=== PATIENT | female | born 1975 | race African-American/Black ===

== ENCOUNTER 2016-10-22 17:13 | Emergency (ER) | payer MEDICARE, MEDICAID ==
[~2016-10-22] VITALS: Ht 157.5 cm; Wt 75.6 kg
[~2016-10-22 17:13] MED LIST: AZAT50TA18; AZIT500T2 PO; CEPH-569; CEPHALEXIN; FLUOCINOLONE; HYDROXYCHLOROQUINE; METRONIDAZOLE; OMEPRAZOLE; PRED10TA; PREDNISONE; SULF1TAB47; TRAMADOL; TYLENOL #3; XANAX; [UNRECOGNIZED DRUG - OTHER]; [UNRECOGNIZED DRUG - OTHER]
[2016-10-22] MEDS ORDERED: ASPIRIN 81MG TABLET PO ONE (18:00)
[2016-10-22] MEDS ORDERED: MORPHINE SULFATE 10 MG/ML CPJ IM ONE (18:00)
[2016-10-22 18:05] VITALS: BP 121/88
[2016-10-22 18:26] LABS: BASOPHILS % 0.5 % (0.0-2.0); EOSINOPHILS % 0.2 % (0.0-5.0); HEMATOCRIT. 37.8 % (36.0-48.0); HEMOGLOBIN. 12.9 g/dL (12.0-16.0); MEAN CORPUSCULAR HEMOGLOBIN 32.4 pg (28.0-32.0); MEAN PLATELET VOLUME 7.3 fl (7.4-10.4); MONOCYTES % 5.1 % (2.0-8.0); NEUTROPHILS % 83.2 % (40.0-76.0); PLATELET 228 x1000/uL (130-400); RED BLOOD CELL COUNT 3.97 mill/uL (4.2-5.4)
[2016-10-22 18:33] LABS: HCG SCREEN NEGATIVE
[2016-10-22 18:42] LABS: CARBON DIOXIDE 21 mEq/L (21-32); CHLORIDE 108 mEq/L (98-107); ETHANOL BLOOD < 10 mg/dL; TROPONIN I < 0.02 ng/mL (0.00-0.04)
[2016-10-22 18:53] LABS: CLARITY URINE CLOUDY (CLEAR); COLOR URINE YELLOW (YELLOW); GLUCOSE URINE NEGATIVE (NEGATIVE); KETONES URINE NEGATIVE (NEGATIVE); LEUKOCYTE ESTERASE URINE NEGATIVE (NEGATIVE); NITRITE URINE NEGATIVE (NEGATIVE); OCCULT BLOOD URINE TRACE (NEGATIVE); PROTEIN URINE NEGATIVE (NEGATIVE); UROBILINOGEN URINE 0.2 E.U./dL (0.2-1.0)
[2016-10-22 19:07] LABS: *BARBITURATES SCREEN URINE NEGATIVE (NEGATIVE); *BENZODIAZEPINES SCREEN URINE NEGATIVE (NEGATIVE); *COCAINE SCREEN URINE NEGATIVE (NEGATIVE); METHADONE URINE SCREEN NEGATIVE (NEGATIVE); PHENCYCLIDINE URINE SCREEN NEGATIVE (NEGATIVE)
[2016-10-22 19:10] LABS: *AMPHETAMINES SCREEN URINE PRESUMTIVE POSITIVE (NEGATIVE); CANNABINOID URINE SCREEN PRESUMTIVE POSITIVE (NEGATIVE); OPIATES URINE SCREEN PRESUMTIVE POSITIVE (NEGATIVE)
== END 2016-10-22 20:24 | disposition home or self-care (01) ==
LOC: ER 18:54
DX: R07.89 Other chest pain (principal); F11.10 Opioid abuse, uncomplicated; F15.10 Other stimulant abuse, uncomplicated; M32.9 Systemic lupus erythematosus, unspecified; F17.210 Nicotine dependence, cigarettes, uncomplicated; F12.10 Cannabis abuse, uncomplicated; Z88.3 Allergy status to other anti-infective agents; Z98.890 Other specified postprocedural states
CPT/HCPCS: 36415; 71010; 80053; 80305; 81001; 83690; 84484; 84703; 85025; 93005; 96372; 99285; G0482; J2270

== ENCOUNTER 2017-10-18 14:01 | Emergency (ER) | payer MEDICARE, MEDICAID ==
[~2017-10-18] VITALS: Ht 167.6 cm; Wt 70.0 kg
[2017-10-18] MEDS ORDERED: SODIUM CHLORIDE 0.9% 1,000 ML IV ONE (14:52)
[2017-10-18] MEDS ORDERED: ONDANSETRON HCL 4MG/2ML VIAL IV STA (14:52)
[2017-10-18] MEDS ORDERED: MORPHINE SULFATE 4 MG/ML CPJ (NOT FOR IM USE) IV STA (14:52)
[2017-10-18] MEDS ORDERED: PREDNISONE 20MG TABLET PO ONE (15:00)
[2017-10-18] MEDS ORDERED: IPRATROPIUM/ALBUTEROL 0.5-3(2.5)MG/3ML NEB HHN ONE (15:00)
[2017-10-18 16:00] LABS: BASOPHILS % 0.5 % (0.0-2.0); EOSINOPHILS % 0.2 % (0.0-5.0); HEMATOCRIT. 39.8 % (36.0-48.0); HEMOGLOBIN. 13.7 g/dL (12.0-16.0); LYMPHOCYTES % 18.1 % (20.0-50.0); MEAN CORPUSCULAR HEMOGLOBIN 32.8 pg (28.0-32.0); MEAN CORPUSCULAR VOLUME 95.5 fL (81.0-99.0); MEAN PLATELET VOLUME 7.5 fl (7.4-10.4); MONOCYTES % 8.9 % (2.0-8.0); NEUTROPHILS % 72.3 % (40.0-76.0); PLATELET 239 x1000/uL (130-400); RED BLOOD CELL COUNT 4.17 mill/uL (4.2-5.4); RED CELL DISTRIBUTION WIDTH 13.1 % (11.6-14.6)
[2017-10-18 16:00] LABS: CLARITY URINE CLEAR (CLEAR); COLOR URINE YELLOW (YELLOW); KETONES URINE NEGATIVE (NEGATIVE); LEUKOCYTE ESTERASE URINE NEGATIVE (NEGATIVE); NITRITE URINE NEGATIVE (NEGATIVE); OCCULT BLOOD URINE NEGATIVE (NEGATIVE); PROTEIN URINE NEGATIVE (NEGATIVE); SPECIFIC GRAVITY URINE 1.012 (1.005-1.030); UROBILINOGEN URINE 0.2 E.U./dL (0.2-1.0)
[2017-10-18 16:04] LABS: CHLORIDE 108 mEq/L (98-107)
[2017-10-18 16:15] VITALS: BP 122/82
== END 2017-10-18 16:48 | disposition home or self-care (01) ==
LOC: ER 14:01 → CANBEDREQ 16:20 → ER 16:48
DX: M32.9 Systemic lupus erythematosus, unspecified (principal); R53.1 Weakness; R19.7 Diarrhea, unspecified; R11.2 Nausea with vomiting, unspecified; F12.10 Cannabis abuse, uncomplicated; Z79.899 Other long term (current) drug therapy; Z88.3 Allergy status to other anti-infective agents; Z88.1 Allergy status to other antibiotic agents
CPT/HCPCS: 36415; 71045; 80053; 81003; 81025; 83690; 85025; 93005; 94640; 96361; 96374; 96375; 99285; J2270; J2405; J7030; J7512; J7620

== ENCOUNTER 2017-11-12 23:46 | Emergency (ER) | payer MEDICARE, MEDICAID ==
[~2017-11-12] VITALS: Ht 165.1 cm; Wt 73.0 kg
[2017-11-13] MEDS ORDERED: ONDANSETRON 4MG ODT PO ONE
[2017-11-13] MEDS ORDERED: KETOROLAC 30MG/ML VIAL IM ONE
[2017-11-13] MEDS ORDERED: MORPHINE SULFATE 10 MG/ML CPJ IM ONE
[2017-11-13 00:34] LABS: BASOPHILS % 0.8 % (0.0-2.0); EOSINOPHILS % 0.1 % (0.0-5.0); HEMATOCRIT. 41.4 % (36.0-48.0); HEMOGLOBIN. 13.9 g/dL (12.0-16.0); LYMPHOCYTES % 11.9 % (20.0-50.0); MEAN CORPUSCULAR HEMOGLOBIN 31.9 pg (28.0-32.0); MEAN CORPUSCULAR VOLUME 94.6 fL (81.0-99.0); MEAN PLATELET VOLUME 7.6 fl (7.4-10.4); NEUTROPHILS % 81.2 % (40.0-76.0); PLATELET 287 x1000/uL (130-400); RED BLOOD CELL COUNT 4.37 mill/uL (4.2-5.4)
[2017-11-13 00:41] LABS: CHLORIDE 106 mEq/L (98-107)
[2017-11-13 00:45] LABS: ETHANOL BLOOD < 10 mg/dL
[2017-11-13 00:50] LABS: CREATINE KINASE 60 IU/L (26-192); HCG SCREEN NEGATIVE
[2017-11-13 02:30] VITALS: BP 120/76
[2017-11-13] MEDS ORDERED: PREDNISONE 20MG TABLET PO ONE (02:30)
== END 2017-11-13 02:51 | disposition home or self-care (01) ==
LOC: ER 11-13 00:17
DX: M79.1 Myalgia (principal); M32.9 Systemic lupus erythematosus, unspecified; F12.10 Cannabis abuse, uncomplicated; Z88.1 Allergy status to other antibiotic agents; Z79.899 Other long term (current) drug therapy; Z90.49 Acquired absence of other specified parts of digestive tract; Z98.890 Other specified postprocedural states
CPT/HCPCS: 36415; 80053; 82550; 83690; 83880; 84484; 84703; 85025; 85610; 85651; 85730; 93005; 96372; 99285; G0482; J1885; J2270; J7512; Q0162

== ENCOUNTER 2017-12-26 17:36 | Emergency (ER) | payer MEDICARE, MEDICAID ==
[~2017-12-26] VITALS: Ht 157.5 cm; Wt 70.0 kg
[2017-12-26 20:30] VITALS: BP 165/88
== END 2017-12-26 20:31 | disposition home or self-care (01) ==
LOC: ER 17:36
DX: M32.9 Systemic lupus erythematosus, unspecified (principal); M19.90 Unspecified osteoarthritis, unspecified site; F12.10 Cannabis abuse, uncomplicated; F17.200 Nicotine dependence, unspecified, uncomplicated; Z76.0 Encounter for issue of repeat prescription; Z90.89 Acquired absence of other organs; Z98.890 Other specified postprocedural states; Z79.899 Other long term (current) drug therapy; Z88.1 Allergy status to other antibiotic agents
CPT/HCPCS: 81025; 99283

== ENCOUNTER 2018-04-12 17:33 | Emergency (ER) | payer MEDICARE, MEDICAID ==
[2018-04-12 19:03] VITALS: BP 119/73
== END 2018-04-12 20:00 | disposition left against medical advice (07) ==
LOC: ER 17:33
DX: R10.9 Unspecified abdominal pain (principal); Z53.21 Procedure and treatment not carried out due to patient leaving prior to being seen by health care provider

== ENCOUNTER 2018-04-13 08:36 | Emergency (ER) | payer MEDICARE, MEDICAID ==
[~2018-04-13] VITALS: Ht 157.5 cm; Wt 73.0 kg
[~2018-04-13 08:36] MED LIST changes: -AZIT500T2 PO; -CEPH-569
[2018-04-13] MEDS ORDERED: PREDNISONE 20MG TABLET PO ONE (10:00)
[2018-04-13] MEDS ORDERED: HYDROXYCHLOROQUINE SULFATE 200MG TABLET PO ONE (10:00)
[2018-04-13] MEDS ORDERED: AZATHIOPRINE 50MG TABLET PO ONE (10:00)
[2018-04-13] MEDS ORDERED: ACETAMINOPHEN WITH CODEINE 300/30MG TABLET PO ONE (10:00)
[2018-04-13 10:11] VITALS: BP 127/81
== END 2018-04-13 11:19 | disposition home or self-care (01) ==
LOC: ER 11:07
DX: Z76.0 Encounter for issue of repeat prescription (principal); M32.9 Systemic lupus erythematosus, unspecified; F41.9 Anxiety disorder, unspecified; F17.200 Nicotine dependence, unspecified, uncomplicated; Z88.1 Allergy status to other antibiotic agents; Z98.890 Other specified postprocedural states
CPT/HCPCS: 99284; J7500; J7512

== ENCOUNTER 2018-05-16 06:57 | Emergency (ER) | payer MEDICARE, MEDICAID ==
[2018-05-16] MEDS ORDERED: KETOROLAC 60MG/2ML VIAL IM ONE (07:45)
[2018-05-16 09:28] VITALS: BP 130/78
== END 2018-05-16 09:28 | disposition home or self-care (01) ==
LOC: ER 06:57
DX: S09.8XXA Other specified injuries of head, initial encounter (principal); R51 Headache; F41.9 Anxiety disorder, unspecified; S16.1XXA Strain of muscle, fascia and tendon at neck level, initial encounter; M32.9 Systemic lupus erythematosus, unspecified; W20.1XXA Struck by object due to collapse of building, initial encounter; Y93.9 Activity, unspecified; Y92.89 Other specified places as the place of occurrence of the external cause; Z88.3 Allergy status to other anti-infective agents
CPT/HCPCS: 70450; 72125; 81025; 96372; 99284; J1885

== ENCOUNTER 2018-06-08 07:34 | Emergency (ER) | payer MEDICARE, MEDICAID ==
[~2018-06-08] VITALS: Ht 157.5 cm; Wt 73.0 kg
[2018-06-08] MEDS ORDERED: ONDANSETRON 4MG ODT PO ONE (10:30)
[2018-06-08] MEDS ORDERED: MORPHINE SULFATE 10 MG/ML CPJ IM ONE (10:30)
[2018-06-08] MEDS ORDERED: PREDNISONE 20MG TABLET PO ONE (10:30)
[2018-06-08 10:54] LABS: *AMPHETAMINES SCREEN URINE NEGATIVE (NEGATIVE); *BARBITURATES SCREEN URINE NEGATIVE (NEGATIVE); *BENZODIAZEPINES SCREEN URINE NEGATIVE (NEGATIVE); PHENCYCLIDINE URINE SCREEN NEGATIVE (NEGATIVE)
[2018-06-08 10:55] LABS: *COCAINE SCREEN URINE NEGATIVE (NEGATIVE); METHADONE URINE SCREEN NEGATIVE (NEGATIVE); OPIATES URINE SCREEN NEGATIVE (NEGATIVE)
[2018-06-08 11:10] LABS: CANNABINOID URINE SCREEN PRESUMTIVE POSITIVE (NEGATIVE)
[2018-06-08 14:25] VITALS: BP 106/87
== END 2018-06-08 14:25 | disposition home or self-care (01) ==
LOC: ER 07:34
DX: G89.29 Other chronic pain (principal); M79.10 Myalgia, unspecified site; M32.9 Systemic lupus erythematosus, unspecified; F41.9 Anxiety disorder, unspecified; Z88.3 Allergy status to other anti-infective agents
CPT/HCPCS: 80305; 81025; 96372; 99283; J2270; J7512; Q0162

== ENCOUNTER 2018-06-09 17:24 | Emergency (ER) | payer MEDICARE, MEDICAID ==
[~2018-06-09] VITALS: Ht 167.6 cm; Wt 73.0 kg
[2018-06-09 17:26] VITALS: BP 127/80
== END 2018-06-09 21:00 | disposition left against medical advice (07) ==
LOC: ER 17:24
DX: M79.18 Myalgia, other site (principal); Z53.21 Procedure and treatment not carried out due to patient leaving prior to being seen by health care provider

== ENCOUNTER 2018-06-13 06:08 | Inpatient (IN) | payer MEDICARE, MEDICAID ==
[~2018-06-13] VITALS: Ht 157.5 cm; Wt 70.3 kg
[2018-06-13] MEDS ORDERED: IPRATROPIUM BROMIDE (0.02%) 0.5MG/2.5ML NEB HHN STA (07:04)
[2018-06-13] MEDS ORDERED: ALBUTEROL (0.083%) 2.5MG/3ML NEB HHN STA (07:04)
[2018-06-13] MEDS ORDERED: SODIUM CHLORIDE 0.9% 1,000 ML IV ONE (07:04)
[2018-06-13] MEDS ORDERED: KETOROLAC 30MG/ML VIAL IV STA (07:04)
[2018-06-13] MEDS ORDERED: FAMOTIDINE 20MG/2ML VIAL IV STA (07:04)
[2018-06-13] MEDS ORDERED: ONDANSETRON HCL 4MG/2ML INJ IV ONE (07:15)
[2018-06-13] MEDS ORDERED: MORPHINE SULFATE 4 MG/ML CPJ (NOT FOR IM USE) IV ONE (07:15)
[2018-06-13 07:24] LABS: CLARITY URINE CLEAR (CLEAR); COLOR URINE YELLOW (YELLOW); KETONES URINE NEGATIVE (NEGATIVE); LEUKOCYTE ESTERASE URINE TRACE (NEGATIVE); NITRITE URINE NEGATIVE (NEGATIVE); OCCULT BLOOD URINE 2+ (NEGATIVE); PH URINE 5.5 (4.5-8.0); PROTEIN URINE TRACE (NEGATIVE); SPECIFIC GRAVITY URINE 1.009 (1.005-1.030); UROBILINOGEN URINE 0.2 E.U./dL (0.2-1.0)
[2018-06-13 07:27] LABS: HEMATOCRIT. 38.1 % (36.0-48.0); HEMOGLOBIN. 12.9 g/dL (12.0-16.0); MEAN CORPUSCULAR HEMOGLOBIN 32.2 pg (28.0-32.0); MEAN CORPUSCULAR VOLUME 95.1 fL (81.0-99.0); MEAN PLATELET VOLUME 8.6 fl (7.4-10.4); PLATELET 209 x1000/uL (130-400); RED BLOOD CELL COUNT 4.01 mill/uL (4.2-5.4); RED CELL DISTRIBUTION WIDTH 13.7 % (11.6-14.6)
[2018-06-13 07:30] LABS: CHLORIDE 98 mEq/L (98-107)
[2018-06-13 07:32] LABS: PROTHROMBIN TIME 10.2 sec (9.1-11.1)
[2018-06-13 07:34] LABS: ETHANOL BLOOD < 10 mg/dL
[2018-06-13 07:44] LABS: *AMPHETAMINES SCREEN URINE NEGATIVE (NEGATIVE); *BARBITURATES SCREEN URINE NEGATIVE (NEGATIVE); *BENZODIAZEPINES SCREEN URINE NEGATIVE (NEGATIVE); *COCAINE SCREEN URINE NEGATIVE (NEGATIVE); METHADONE URINE SCREEN NEGATIVE (NEGATIVE)
[2018-06-13 07:45] LABS: PHENCYCLIDINE URINE SCREEN NEGATIVE (NEGATIVE)
[2018-06-13] MEDS ORDERED: LEVOFLOXACIN 500MG PREMIX 100 ML IV ONE (07:45)
[2018-06-13] MEDS ORDERED: SODIUM CHLORIDE 0.9% 1000ML BAG (SEPSIS BOLUS) IV ONE (07:45)
[2018-06-13] MEDS ORDERED: METHYLPREDNISOLONE SOD SUCC 125 MG/2 ML VIAL IV ONE (07:45)
[2018-06-13 07:47] LABS: CANNABINOID URINE SCREEN PRESUMTIVE POSITIVE (NEGATIVE); OPIATES URINE SCREEN PRESUMTIVE POSITIVE (NEGATIVE)
[2018-06-13 07:55] LABS: PLATELET ESTIMATE NORMAL
[2018-06-13 07:58] LABS: HCG SCREEN NEGATIVE
[2018-06-13] MEDS ORDERED: POTASSIUM CHLORIDE 20MEQ TABLET SR PO ONE (09:45)
[2018-06-13 12:00] VITALS: BP 129/73
[2018-06-13 12:26] VITALS: BP 129/73
[2018-06-13] MEDS ORDERED: METHYLPREDNISOLONE SOD SUCC 40 MG/ML VIAL IV SCH (14:00)
[2018-06-13] MEDS: DEXT 5%/0.45% NACL 1000ML 1,000 ML IV SCH (14:22)
[2018-06-13] MEDS: CEFTRIAXONE 1 G PREMIX 50 ML IV SCH (15:48)
[2018-06-13 16:00] VITALS: BP 123/89
[2018-06-13] MEDS ORDERED: ACETAMINOPHEN 325MG TABLET PO PRN (17:00)
[2018-06-13 20:00] VITALS: BP 129/90
[2018-06-13] MEDS ORDERED: KCL 20MEQ/100ML PREMIX 100 ML IV NR (22:00)
[2018-06-14] VITALS: BP 127/82
[2018-06-14] MEDS: CEFTRIAXONE 1 G PREMIX 50 ML IV SCH ×2 (03:36→16:26)
[2018-06-14 04:00] VITALS: BP 133/87
[2018-06-14 06:54] LABS: HEMATOCRIT. 36.6 % (36.0-48.0); HEMOGLOBIN. 12.2 g/dL (12.0-16.0); MEAN CORPUSCULAR HEMOGLOBIN 32.1 pg (28.0-32.0); MEAN CORPUSCULAR VOLUME 96.5 fL (81.0-99.0); MEAN PLATELET VOLUME 8.8 fl (7.4-10.4); PLATELET 213 x1000/uL (130-400); RED BLOOD CELL COUNT 3.79 mill/uL (4.2-5.4); RED CELL DISTRIBUTION WIDTH 14.3 % (11.6-14.6)
[2018-06-14 07:00] LABS: CHLORIDE 104 mEq/L (98-107)
[2018-06-14 08:00] VITALS: BP 118/77
[2018-06-14] MEDS: METHYLPREDNISOLONE SOD SUCC 40 MG/ML VIAL IV SCH (08:59)
[2018-06-14 12:10] VITALS: BP 129/90
[2018-06-14 13:23] LABS: PLATELET ESTIMATE NORMAL
[2018-06-14 16:00] VITALS: BP 129/85
[2018-06-14 20:00] VITALS: BP 132/85
[2018-06-15] VITALS: BP 128/86
[2018-06-15] MEDS: CEFTRIAXONE 1 G PREMIX 50 ML IV SCH ×2 (03:50→14:35)
[2018-06-15] MEDS: DEXT 5%/0.45% NACL 1000ML 1,000 ML IV SCH (03:50)
[2018-06-15 04:00] VITALS: BP 129/88
[2018-06-15 07:34] LABS: HEMATOCRIT. 36.2 % (36.0-48.0); MEAN CORPUSCULAR HEMOGLOBIN 31.9 pg (28.0-32.0); MEAN CORPUSCULAR VOLUME 96.4 fL (81.0-99.0); MEAN PLATELET VOLUME 9.2 fl (7.4-10.4); PLATELET 231 x1000/uL (130-400); RED BLOOD CELL COUNT 3.75 mill/uL (4.2-5.4); RED CELL DISTRIBUTION WIDTH 14.7 % (11.6-14.6)
[2018-06-15 07:34] LABS: CHLORIDE 102 mEq/L (98-107)
[2018-06-15 08:00] VITALS: BP 136/93
[2018-06-15] MEDS: METHYLPREDNISOLONE SOD SUCC 40 MG/ML VIAL IV SCH (09:32)
[2018-06-15 12:00] VITALS: BP 141/89
[2018-06-15 16:00] VITALS: BP 135/89
[2018-06-15 20:00] VITALS: BP 135/94
[2018-06-15] MEDS ORDERED: LOSARTAN POTASSIUM 25 MG TABLET PO SCH (21:00)
[2018-06-16] VITALS: BP 123/78
[2018-06-16] MEDS: CEFTRIAXONE 1 G PREMIX 50 ML IV SCH ×2 (03:25→14:58)
[2018-06-16 04:00] VITALS: BP 141/89
[2018-06-16 06:18] LABS: CHLORIDE 102 mEq/L (98-107)
[2018-06-16 06:33] LABS: HEMATOCRIT. 37.3 % (36.0-48.0); HEMOGLOBIN. 12.2 g/dL (12.0-16.0); MEAN CORPUSCULAR HEMOGLOBIN 31.8 pg (28.0-32.0); MEAN CORPUSCULAR VOLUME 96.9 fL (81.0-99.0); MEAN PLATELET VOLUME 8.8 fl (7.4-10.4); PLATELET 279 x1000/uL (130-400); RED BLOOD CELL COUNT 3.85 mill/uL (4.2-5.4); RED CELL DISTRIBUTION WIDTH 14.6 % (11.6-14.6)
[2018-06-16 08:00] VITALS: BP 133/85
[2018-06-16] MEDS: METHYLPREDNISOLONE SOD SUCC 40 MG/ML VIAL IV SCH (08:55)
[2018-06-16] MEDS ORDERED: LEVOFLOXACIN 250MG TABLET PO SCH ×2 (11:00→16:00)
[2018-06-16 12:00] VITALS: BP 150/90
[2018-06-16 13:46] LABS: PLATELET ESTIMATE NORMAL
[2018-06-16 16:00] VITALS: BP 122/83
[2018-06-16 16:17] VITALS: BP 122/83
[2018-06-17 07:25] LABS: NUCLEATED RED BLOOD CELLS 1 /100 WBC
[2018-06-17 07:26] LABS: PLATELET ESTIMATE NORMAL
== END 2018-06-16 18:48 | disposition home or self-care (01) | DRG 871 ==
LOC: ER 06:08 → 5WST 09:40 → EDBEDREQ 09:44 → ENRESERV 09:57
PROVIDERS: ADMIT Internal Medicine Rheumatology; ATTEND Internal Medicine Rheumatology
DX: A41.9 Sepsis, unspecified organism (principal); J18.9 Pneumonia, unspecified organism; E44.1 Mild protein-calorie malnutrition; E87.1 Hypo-osmolality and hyponatremia; F17.210 Nicotine dependence, cigarettes, uncomplicated; M32.9 Systemic lupus erythematosus, unspecified; E87.6 Hypokalemia; I50.9 Heart failure, unspecified; F41.9 Anxiety disorder, unspecified; Z83.3 Family history of diabetes mellitus; Z98.891 History of uterine scar from previous surgery; Z88.1 Allergy status to other antibiotic agents; Z79.01 Long term (current) use of anticoagulants; Z82.49 Family history of ischemic heart disease and other diseases of the circulatory system; Z79.899 Other long term (current) drug therapy; Z90.49 Acquired absence of other specified parts of digestive tract; Z82.61 Family history of arthritis; Z83.2 Family history of diseases of the blood and blood-forming organs and certain disorders involving the immune mechanism; Z80.9 Family history of malignant neoplasm, unspecified; Z68.28 Body mass index [BMI] 28.0-28.9, adult
CPT/HCPCS: 36415; 71045; 73000; 73030; 80048; 80305; 80320; 83605; 83735; 83880; 84145; 84484; 84703; 87077; 87186; 93005; 94640; 96361; 96374; 96375; 99291; J0696; J1885; J1956; J2270; J2405; J2920; J2930; J3480; J3490; J7030; J7611; G0480

== ENCOUNTER 2018-08-06 15:47 | Emergency (ER) | payer MEDICARE, MEDICAID ==
[~2018-08-06] VITALS: Ht 208.3 cm; Wt 73.0 kg
[~2018-08-06 15:47] MED LIST changes: -PREDNISONE; -[UNRECOGNIZED DRUG - OTHER]; -[UNRECOGNIZED DRUG - OTHER]
[2018-08-06] MEDS ORDERED: SODIUM CHLORIDE 0.9% 1,000 ML IV ONE (16:45)
[2018-08-06] MEDS ORDERED: ONDANSETRON HCL 4MG/2ML INJ IV STA (16:45)
[2018-08-06] MEDS ORDERED: MORPHINE SULFATE 4 MG/ML CPJ (NOT FOR IM USE) IV STA (16:45)
[2018-08-06] MEDS ORDERED: METHYLPREDNISOLONE SOD SUCC 125 MG/2 ML VIAL IV ONE (16:45)
[2018-08-06 17:11] LABS: BASOPHILS % 0.7 % (0.0-2.0); EOSINOPHILS % 0.8 % (0.0-5.0); HEMATOCRIT. 41.7 % (36.0-48.0); HEMOGLOBIN. 13.8 g/dL (12.0-16.0); LYMPHOCYTES % 18.1 % (20.0-50.0); MEAN CORPUSCULAR HEMOGLOBIN 30.5 pg (28.0-32.0); MEAN CORPUSCULAR VOLUME 92.1 fL (81.0-99.0); MEAN PLATELET VOLUME 7.2 fl (7.4-10.4); MONOCYTES % 9.9 % (2.0-8.0); NEUTROPHILS % 70.5 % (40.0-76.0); PLATELET 278 x1000/uL (130-400); RED BLOOD CELL COUNT 4.53 mill/uL (4.2-5.4); RED CELL DISTRIBUTION WIDTH 15.7 % (11.6-14.6)
[2018-08-06 17:12] LABS: CHLORIDE 109 mEq/L (98-107)
[2018-08-06 17:13] LABS: PROTHROMBIN TIME 10.4 sec (9.6-11.0)
[2018-08-06 17:16] LABS: HCG SCREEN NEGATIVE
[2018-08-06 17:37] LABS: CLARITY URINE CLEAR (CLEAR); COLOR URINE YELLOW (YELLOW); KETONES URINE NEGATIVE (NEGATIVE); LEUKOCYTE ESTERASE URINE NEGATIVE (NEGATIVE); NITRITE URINE NEGATIVE (NEGATIVE); OCCULT BLOOD URINE TRACE (NEGATIVE); PROTEIN URINE NEGATIVE (NEGATIVE); SPECIFIC GRAVITY URINE 1.018 (1.005-1.030); UROBILINOGEN URINE 0.2 E.U./dL (0.2-1.0)
[2018-08-06 19:00] VITALS: BP 118/77
== END 2018-08-06 19:18 | disposition home or self-care (01) ==
LOC: ER 15:47 → CANBEDREQ 08-07 05:41
DX: R11.2 Nausea with vomiting, unspecified (principal); R53.83 Other fatigue; F41.9 Anxiety disorder, unspecified; F17.200 Nicotine dependence, unspecified, uncomplicated; F12.10 Cannabis abuse, uncomplicated; Z90.89 Acquired absence of other organs; Z98.890 Other specified postprocedural states; Z88.1 Allergy status to other antibiotic agents; Z79.899 Other long term (current) drug therapy
CPT/HCPCS: 36415; 71045; 80053; 81003; 83605; 84484; 84703; 85025; 85610; 93005; 96361; 96374; 96375; 99284; J2270; J2405; J2930; J7030

== ENCOUNTER 2019-02-07 01:05 | Emergency (ER) | payer MEDICARE, MEDICAID ==
[~2019-02-07] VITALS: Ht 157.5 cm; Wt 73.0 kg
[~2019-02-07 01:05] MED LIST changes: -CEPHALEXIN; -FLUOCINOLONE; +HYDR200T80 MT; -HYDROXYCHLOROQUINE; -METRONIDAZOLE; -OMEPRAZOLE; -PRED10TA; -SULF1TAB47; -TRAMADOL; -XANAX
[2019-02-07 02:25] VITALS: BP 130/88
[2019-02-07] MEDS ORDERED: PREDNISONE 10MG TABLET PO ONE (02:30)
== END 2019-02-07 02:39 | disposition home or self-care (01) ==
LOC: ER 01:05
DX: M32.9 Systemic lupus erythematosus, unspecified (principal); F41.9 Anxiety disorder, unspecified; F17.200 Nicotine dependence, unspecified, uncomplicated; Z53.21 Procedure and treatment not carried out due to patient leaving prior to being seen by health care provider; Z88.1 Allergy status to other antibiotic agents; Z79.899 Other long term (current) drug therapy; Z90.49 Acquired absence of other specified parts of digestive tract
CPT/HCPCS: 99282; J7512

== ENCOUNTER 2021-03-21 05:53 | Emergency (ER) | payer BC, MEDICAID ==
[~2021-03-21] VITALS: Ht 157.5 cm; Wt 80.7 kg
[2021-03-21 06:39] LABS: HEMATOCRIT. 38.4 % (36.0-48.0); HEMOGLOBIN. 12.6 g/dL (12.0-16.0); MEAN CORPUSCULAR HEMOGLOBIN 30.8 pg (28.0-32.0); MEAN CORPUSCULAR VOLUME 93.8 fL (81.0-99.0); MEAN PLATELET VOLUME 7.2 fl (7.4-10.4); PLATELET 292 x1000/uL (130-400); RED BLOOD CELL COUNT 4.09 mill/uL (4.2-5.4); RED CELL DISTRIBUTION WIDTH 15.9 % (11.6-14.6)
[2021-03-21 06:45] LABS: CHLORIDE 103 mEq/L (98-107)
[2021-03-21] MEDS ORDERED: ACETAMINOPHEN WITH CODEINE 300/30MG TABLET PO ONE (06:45)
[2021-03-21] MEDS ORDERED: LIDOCAINE HCL/PF 1% 10 MG/ML 5ML VIAL INFIL ONE (06:45)
[2021-03-21] MEDS ORDERED: LIDOCAINE HCL 1% 20ML VIAL (Pyxis) INJ INFIL NR (07:00)
[2021-03-21 07:01] LABS: CLARITY URINE CLEAR (CLEAR); COLOR URINE DARK YELLOW (YELLOW); KETONES URINE TRACE (NEGATIVE); LEUKOCYTE ESTERASE URINE NEGATIVE (NEGATIVE); NITRITE URINE NEGATIVE (NEGATIVE); OCCULT BLOOD URINE NEGATIVE (NEGATIVE); PH URINE 5.5 (4.5-8.0); PROTEIN URINE TRACE (NEGATIVE); SPECIFIC GRAVITY URINE 1.034 (1.005-1.030)
[2021-03-21] MEDS ORDERED: TOPUD PO (07:17)
[2021-03-21] MEDS ORDERED: CEPH500T PO (07:17)
[2021-03-21] MEDS ORDERED: SULF1TAB48 PO (07:17)
[2021-03-21 07:31] LABS: PLATELET ESTIMATE NORMAL
[2021-03-21 08:01] VITALS: BP 131/85
== END 2021-03-21 08:07 | disposition home or self-care (01) ==
LOC: ER 05:53
DX: L02.214 Cutaneous abscess of groin (principal); M32.9 Systemic lupus erythematosus, unspecified; F41.9 Anxiety disorder, unspecified; F12.10 Cannabis abuse, uncomplicated; Z86.16 Personal history of COVID-19; Z90.49 Acquired absence of other specified parts of digestive tract; Z88.1 Allergy status to other antibiotic agents
CPT/HCPCS: 10060; 36415; 80053; 81003; 83690; 85025; 99284; J3490